=== PATIENT | male | born 1935 | race Hispanic/Latino ===

== ENCOUNTER 2020-12-31 13:53 | Inpatient (IN) | payer MEDICARE ==
[~2020-12-31] VITALS: Ht 180.3 cm; Wt 82.0 kg
[2020-12-31] MEDS ORDERED: POTASSIUM CHLORIDE 10% ELIXIR 20 MEQ/15 ML UDCUP PO PRN (14:45)
[2020-12-31] MEDS ORDERED: POTASSIUM CHLORIDE 10MEQ/100ML 100 ML IV PRN (14:45)
[2020-12-31] MEDS ORDERED: ONDANSETRON HCL 4 MG/2 ML VIAL IV PRN (14:45)
[2020-12-31] MEDS ORDERED: LIDOCAINE HCL-MPF 1% 2ML VIAL IV PRN (14:45)
[2020-12-31] MEDS ORDERED: LACTULOSE 20 GM/30 ML UDCUP PO PRN (14:45)
[2020-12-31] MEDS: NITROGLYCERIN 1GM/1 INCH PACKET TD SCH ×2 (14:45→20:00)
[2020-12-31] MEDS ORDERED: MAGNESIUM 2GM PREMIX 50ML 50 ML IV PRN (14:45)
[2020-12-31] MEDS ORDERED: ACETAMINOPHEN 325 MG TAB PO PRN (14:45)
[2020-12-31] MEDS ORDERED: ENOXAPARIN SODIUM 80 MG/0.8 ML SQ ONE (14:56)
[2020-12-31] MEDS ORDERED: ASPIRIN 81MG TAB.CHEW ONE (14:56)
[2020-12-31] MEDS ORDERED: METOPROLOL TARTRATE 25 MG TAB ONE (14:56)
[2020-12-31] MEDS ORDERED: NITROGLYCERIN 1GM/1 INCH PACKET TD ONE (14:56)
[2020-12-31] MEDS ORDERED: [UNRECOGNIZED DRUG - REMARK] MISC SCH (15:00)
[2020-12-31 16:11] LABS: BASOPHILS % (AUTO) 0.5 % (0.0-5.0); EOSINOPHILS % (AUTO) 0.5 % (0.0-8.0); HEMATOCRIT 43.2 % (42-54); MEAN CORPUSCULAR HEMOGLOBIN 33.1 pg (27.0-33.0); MEAN CORPUSCULAR HGB CONC 34.5 g/dL (32.0-36.0); MONOCYTES % (AUTO) 7.1 % (3.0-13.0); NEUTROPHILS % (AUTO) 71.6 % (40.0-77.0); PLATELET COUNT (AUTO) 150 K/uL (130-400); RED CELL DISTRIBUTION WIDTH 12.6 % (11.0-15.5); WHITE BLOOD COUNT (AUTO) 5.8 K/uL (4.8-10.8)
[2020-12-31] MEDS ORDERED: SODIUM CHLORIDE 0.9% 10 ML VIAL IVP SCH (16:15)
[2020-12-31] MEDS ORDERED: GLUCAGON 1MG KIT 1 MG ML IM PRN (16:15)
[2020-12-31] MEDS ORDERED: DIPHENHYDRAMINE HCL 25 MG CAPSULE PO PRN (16:15)
[2020-12-31] MEDS ORDERED: DEXTROSE 50%-WATER 50 ML DISP.SYRIN IV PRN (16:15)
[2020-12-31 16:22] LABS: POTASSIUM 4.1 mmol/L (3.5-5.1)
[2020-12-31 16:30] LABS: BILIRUBIN,TOTAL 0.8 mg/dL (0.2-1.0); TOTAL PROTEIN, SERUM 7.2 g/dL (6.0-8.3)
[2020-12-31] MEDS: INSULIN R PO SSI SQ SCH ×2 (16:30→20:33)
[2020-12-31 16:31] LABS: CREATINE KINASE, TOTAL 101 U/L (21-232); HEMOGLOBIN A1C 5.8 % (4.0-6.0); MYOGLOBIN 92 ng/mL (10-92); TROPONIN I < 0.04 ng/mL (0.00-0.06)
[2020-12-31 17:00] VITALS: BP 134/87
[2020-12-31] MEDS ORDERED: ALEN70TA80 PO (18:06)
[2020-12-31] MEDS ORDERED: APIX5TAB PO (18:06)
[2020-12-31] MEDS ORDERED: GABA-533 PO (18:06)
[2020-12-31] MEDS ORDERED: LORA10TA7 PO (18:06)
[2020-12-31] MEDS ORDERED: CARV3.1262 PO (18:06)
[2020-12-31] MEDS ORDERED: OMEP40CA21 PO (18:06)
[2020-12-31] MEDS ORDERED: SIMV40TA59 PO (18:06)
[2020-12-31] MEDS ORDERED: DOCU250C14 PO (18:06)
[2020-12-31] MEDS ORDERED: TAMS-1 PO (18:06)
[2020-12-31 18:31] LABS: INR 1.12 (0.85-1.15); PROTHROMBIN TIME 12.1 SEC (9.6-11.6)
[2020-12-31 18:32] LABS: PARTIAL THROMBOPLASTIN TIME 31.3 SEC (26.3-35.5)
[2020-12-31 18:56] LABS: CREATINE KINASE, TOTAL 105 U/L (21-232); MYOGLOBIN 102 ng/mL (10-92); TROPONIN I < 0.04 ng/mL (0.00-0.06)
[2020-12-31] MEDS: SIMVASTATIN 20 MG TABLET PO SCH (19:59)
[2020-12-31] MEDS: METOPROLOL TARTRATE 25 MG TAB PO SCH (19:59)
[2020-12-31] MEDS: ACETAMINOPHEN 325 MG TAB PO PRN (20:10)
[2020-12-31 20:42] VITALS: BP 115/58
[2020-12-31 23:53] VITALS: BP 103/46
[2021-01-01 02:24] LABS: BASOPHILS % (AUTO) 0.8 % (0.0-5.0); EOSINOPHILS % (AUTO) 2.8 % (0.0-8.0); HEMATOCRIT 37.2 % (42-54); LYMPHOCYTES % (AUTO) 39.7 % (21.0-51.0); MEAN CORPUSCULAR HEMOGLOBIN 32.8 pg (27.0-33.0); MEAN CORPUSCULAR HGB CONC 34.4 g/dL (32.0-36.0); MEAN CORPUSCULAR VOLUME 95.4 fL (79-99); NEUTROPHILS % (AUTO) 43.3 % (40.0-77.0); PLATELET COUNT (AUTO) 141 K/uL (130-400); RED CELL DISTRIBUTION WIDTH 12.5 % (11.0-15.5); WHITE BLOOD COUNT (AUTO) 4.9 K/uL (4.8-10.8)
[2021-01-01] MEDS: NITROGLYCERIN 1GM/1 INCH PACKET TD SCH ×2 (02:45→08:35)
[2021-01-01 02:52] LABS: CARBON DIOXIDE 29 mmol/L (21-32); CHLORIDE 106 mmol/L (101-111); CREATININE 1.1 mg/dL (0.5-1.5); GLOMERULAR FILTR. RATE CALC 68 mL/min (>60); GLUCOSE,RANDOM 81 mg/dL (70-105); POTASSIUM 3.8 mmol/L (3.5-5.1); SODIUM SERUM 142 mmol/L (136-145); UREA NITROGEN, BLOOD 18 mg/dL (7-18)
[2021-01-01 02:54] LABS: CREATINE KINASE, TOTAL 111 U/L (21-232)
[2021-01-01] MEDS ORDERED: POTASSIUM CHLORIDE 10% ELIXIR 20 MEQ/15 ML UDCUP PO PRN (03:15)
[2021-01-01] MEDS ORDERED: LIDOCAINE HCL-MPF 1% 2ML VIAL IV PRN (03:15)
[2021-01-01] MEDS ORDERED: KCL 20 MEQ ERTAB PO SCH (03:15)
[2021-01-01] MEDS ORDERED: KCL 20 MEQ ERTAB PO PRN (03:15)
[2021-01-01] MEDS ORDERED: MAGNESIUM 2GM PREMIX 50ML 50 ML IV PRN (03:15)
[2021-01-01] MEDS ORDERED: POTASSIUM CHLORIDE 20MEQ/100ML 100 ML IV PRN (03:15)
[2021-01-01 03:19] LABS: MYOGLOBIN 101 ng/mL (10-92); TROPONIN I < 0.04 ng/mL (0.00-0.06)
[2021-01-01] MEDS: MAGNESIUM 2GM PREMIX 50ML 50 ML IV SCH (04:14)
[2021-01-01 04:22] VITALS: BP 99/53
[2021-01-01] MEDS: INSULIN R PO SSI SQ SCH ×4 (07:30→20:53)
[2021-01-01 08:00] VITALS: BP 128/62
[2021-01-01] MEDS: METOPROLOL TARTRATE 25 MG TAB PO SCH ×2 (08:35→21:31)
[2021-01-01] MEDS: ASPIRIN 81MG TAB.CHEW PO SCH (08:37)
[2021-01-01] MEDS: PANTOPRAZOLE SODIUM 40 MG TABLET.DR PO SCH (08:37)
[2021-01-01] MEDS: ENOXAPARIN SODIUM 80 MG/0.8 ML SQ SCH (08:38)
[2021-01-01] MEDS ORDERED: APIX5TAB PO (08:42)
[2021-01-01] MEDS ORDERED: FOLI0.8T3 PO (08:44)
[2021-01-01] MEDS ORDERED: TAMSULOSIN HCL 0.4 MG CAP.ER.24H PO SCH (09:00)
[2021-01-01 12:00] VITALS: BP 114/68
[2021-01-01] MEDS ORDERED: MAGNESIUM 2GM PREMIX 50ML 50 ML IV SCH (12:00)
[2021-01-01 16:00] VITALS: BP 131/71
[2021-01-01 19:53] VITALS: BP 121/59
[2021-01-01] MEDS: TAMSULOSIN HCL 0.4 MG CAP.ER.24H PO SCH (21:31)
[2021-01-01] MEDS: SIMVASTATIN 20 MG TABLET PO SCH (21:32)
[2021-01-01] MEDS: TRAZODONE HCL 50 MG TAB PO PRN (21:32)
[2021-01-02 04:00] VITALS: BP 125/68
[2021-01-02 04:58] LABS: HEMATOCRIT 40.6 % (42-54); MEAN CORPUSCULAR HEMOGLOBIN 32.6 pg (27.0-33.0); MEAN CORPUSCULAR HGB CONC 34.5 g/dL (32.0-36.0); MEAN CORPUSCULAR VOLUME 94.6 fL (79-99); RED BLOOD CELL COUNT(AUTO) 4.29 MIL/uL (4.50-6.20); RED CELL DISTRIBUTION WIDTH 12.6 % (11.0-15.5); WHITE BLOOD COUNT (AUTO) 5.3 K/uL (4.8-10.8)
[2021-01-02 05:07] LABS: POTASSIUM 4.3 mmol/L (3.5-5.1)
[2021-01-02] MEDS: INSULIN R PO SSI SQ SCH ×3 (06:35→20:42)
[2021-01-02 07:00] VITALS: BP 104/63
[2021-01-02] MEDS ORDERED: REGADENOSON 0.4 MG/5 ML PF SYG IVP SCH (07:00)
[2021-01-02] MEDS: METOPROLOL TARTRATE 25 MG TAB PO SCH (09:00)
[2021-01-02] MEDS: ACETAMINOPHEN 325 MG TAB PO PRN (10:40)
[2021-01-02] MEDS: ENOXAPARIN SODIUM 80 MG/0.8 ML SQ SCH (10:42)
[2021-01-02] MEDS: PANTOPRAZOLE SODIUM 40 MG TABLET.DR PO SCH (10:43)
[2021-01-02] MEDS: ASPIRIN 81MG TAB.CHEW PO SCH (10:44)
[2021-01-02 11:00] VITALS: BP 140/52
[2021-01-02 16:00] VITALS: BP 137/72
[2021-01-02] MEDS: LISINOPRIL 5 MG TABLET PO SCH (19:42)
[2021-01-02] MEDS: SIMVASTATIN 20 MG TABLET PO SCH (19:43)
[2021-01-02] MEDS: TAMSULOSIN HCL 0.4 MG CAP.ER.24H PO SCH (19:43)
[2021-01-02] MEDS: TRAZODONE HCL 50 MG TAB PO PRN (19:47)
[2021-01-02 20:00] VITALS: BP 120/72
[2021-01-02] MEDS ORDERED: METOPROLOL TARTRATE 25 MG TAB PO SCH (21:00)
[2021-01-03] VITALS (16 sets, daily range): BP systolic 74–152; BP diastolic 41–72
[2021-01-03] MEDS: INSULIN R PO SSI SQ SCH ×4 (05:46→20:01)
[2021-01-03] MEDS ORDERED: PROPOFOL 10 MG/ML 20ML VIAL IV ONE (08:22)
[2021-01-03] MEDS ORDERED: ATROPINE SULFATE 0.1 MG/ML 10 ML SYG IVP ONE (08:29)
[2021-01-03] MEDS ORDERED: EPHEDRINE SULFATE 50 MG/ML AMPULE ONE (08:31)
[2021-01-03] MEDS: PANTOPRAZOLE SODIUM 40 MG TABLET.DR PO SCH (09:58)
[2021-01-03] MEDS: FUROSEMIDE 20 MG TABLET PO SCH (09:58)
[2021-01-03] MEDS: ASPIRIN 81MG TAB.CHEW PO SCH (09:58)
[2021-01-03] MEDS: CARVEDILOL 3.125 MG TABLET PO SCH ×2 (09:59→19:58)
[2021-01-03] MEDS: LISINOPRIL 5 MG TABLET PO SCH ×2 (09:59→19:58)
[2021-01-03] MEDS: TRAZODONE HCL 50 MG TAB PO PRN (19:58)
[2021-01-03] MEDS: TAMSULOSIN HCL 0.4 MG CAP.ER.24H PO SCH (19:58)
[2021-01-03] MEDS: SIMVASTATIN 20 MG TABLET PO SCH (19:58)
[2021-01-04] VITALS (7 sets, daily range): BP systolic 95–145; BP diastolic 44–67
[2021-01-04 04:19] LABS: BASOPHILS % (AUTO) 0.5 % (0.0-5.0); HEMATOCRIT 36.9 % (42-54); MEAN CORPUSCULAR HEMOGLOBIN 33.3 pg (27.0-33.0); MEAN CORPUSCULAR VOLUME 95.3 fL (79-99); MONOCYTES % (AUTO) 11.3 % (3.0-13.0); PLATELET COUNT (AUTO) 130 K/uL (130-400); RED BLOOD CELL COUNT(AUTO) 3.87 MIL/uL (4.50-6.20); RED CELL DISTRIBUTION WIDTH 12.5 % (11.0-15.5); WHITE BLOOD COUNT (AUTO) 5.6 K/uL (4.8-10.8)
[2021-01-04 04:49] LABS: ALBUMIN 3.2 g/dL (3.5-5.0); BILIRUBIN,TOTAL 0.8 mg/dL (0.2-1.0); POTASSIUM 3.7 mmol/L (3.5-5.1); TOTAL PROTEIN, SERUM 5.9 g/dL (6.0-8.3)
[2021-01-04] MEDS: INSULIN R PO SSI SQ SCH ×4 (06:15→20:45)
[2021-01-04] MEDS: PANTOPRAZOLE SODIUM 40 MG TABLET.DR PO SCH (11:01)
[2021-01-04] MEDS: METOPROLOL SUCCINATE 50 MG TAB.SR.24H PO SCH (11:01)
[2021-01-04] MEDS: FUROSEMIDE 20 MG TABLET PO SCH (11:01)
[2021-01-04] MEDS: ASPIRIN 81MG TAB.CHEW PO SCH (11:01)
[2021-01-04] MEDS: LISINOPRIL 5 MG TABLET PO SCH ×2 (11:02→20:48)
[2021-01-04] MEDS: TAMSULOSIN HCL 0.4 MG CAP.ER.24H PO SCH (20:48)
[2021-01-04] MEDS: SIMVASTATIN 20 MG TABLET PO SCH (20:48)
[2021-01-05 04:00] VITALS: BP 103/49
[2021-01-05 04:32] LABS: BASOPHILS % (AUTO) 0.2 % (0.0-5.0); EOSINOPHILS % (AUTO) 0.2 % (0.0-8.0); HEMATOCRIT 36.7 % (42-54); LYMPHOCYTES % (AUTO) 10.8 % (21.0-51.0); MEAN CORPUSCULAR HEMOGLOBIN 32.9 pg (27.0-33.0); MEAN CORPUSCULAR HGB CONC 34.6 g/dL (32.0-36.0); MEAN CORPUSCULAR VOLUME 95.1 fL (79-99); MONOCYTES % (AUTO) 8.3 % (3.0-13.0); NEUTROPHILS % (AUTO) 79.8 % (40.0-77.0); PLATELET COUNT (AUTO) 138 K/uL (130-400); RED BLOOD CELL COUNT(AUTO) 3.86 MIL/uL (4.50-6.20); RED CELL DISTRIBUTION WIDTH 12.6 % (11.0-15.5); WHITE BLOOD COUNT (AUTO) 16.5 K/uL (4.8-10.8)
[2021-01-05 05:02] LABS: ALBUMIN 3.2 g/dL (3.5-5.0); BILIRUBIN,TOTAL 1.2 mg/dL (0.2-1.0); CREATININE 1.2 mg/dL (0.5-1.5); POTASSIUM 3.5 mmol/L (3.5-5.1)
[2021-01-05] MEDS: INSULIN R PO SSI SQ SCH ×4 (07:30→21:00)
[2021-01-05 08:00] VITALS: BP 106/65
[2021-01-05] MEDS: PANTOPRAZOLE SODIUM 40 MG TABLET.DR PO SCH (09:35)
[2021-01-05] MEDS: METOPROLOL SUCCINATE 50 MG TAB.SR.24H PO SCH (09:36)
[2021-01-05] MEDS: ASPIRIN 81MG TAB.CHEW PO SCH (09:37)
[2021-01-05] MEDS: FUROSEMIDE 20 MG TABLET PO SCH (09:38)
[2021-01-05] MEDS: LISINOPRIL 5 MG TABLET PO SCH ×2 (09:39→21:34)
[2021-01-05] MEDS ORDERED: ASPI-1005 PO (11:54)
[2021-01-05] MEDS ORDERED: LISI-809 PO (11:54)
[2021-01-05] MEDS ORDERED: METO50TA9 PO (11:54)
[2021-01-05 12:00] VITALS: BP 102/48
[2021-01-05] MEDS ORDERED: AMOX-427 PO (12:03)
[2021-01-05 16:00] VITALS: BP 101/45
[2021-01-05] MEDS ORDERED: APIX5TAB PO (17:10)
[2021-01-05] MEDS ORDERED: FOLI0.8C PO (17:10)
[2021-01-05] MEDS ORDERED: GABA600T10 PO (17:10)
[2021-01-05] MEDS ORDERED: OMEP40CA21 PO (17:10)
[2021-01-05] MEDS ORDERED: TAMS-1 PO (17:10)
[2021-01-05] MEDS ORDERED: SIMV-43 PO (17:10)
[2021-01-05 19:00] VITALS: BP 118/58
[2021-01-05] MEDS: TAMSULOSIN HCL 0.4 MG CAP.ER.24H PO SCH (21:33)
[2021-01-05] MEDS: SIMVASTATIN 20 MG TABLET PO SCH (21:33)
[2021-01-05] MEDS: TRAZODONE HCL 50 MG TAB PO PRN (21:40)
[2021-01-06] VITALS: BP 111/44
[2021-01-06 04:00] VITALS: BP 132/62
[2021-01-06 04:06] LABS: BASOPHILS % (AUTO) 0.3 % (0.0-5.0); EOSINOPHILS % (AUTO) 0.7 % (0.0-8.0); HEMATOCRIT 36.6 % (42-54); LYMPHOCYTES % (AUTO) 13.6 % (21.0-51.0); MEAN CORPUSCULAR HEMOGLOBIN 33.7 pg (27.0-33.0); MEAN CORPUSCULAR VOLUME 96.3 fL (79-99); MONOCYTES % (AUTO) 9.4 % (3.0-13.0); NEUTROPHILS % (AUTO) 75.5 % (40.0-77.0); PLATELET COUNT (AUTO) 118 K/uL (130-400); RED CELL DISTRIBUTION WIDTH 12.4 % (11.0-15.5); WHITE BLOOD COUNT (AUTO) 10.9 K/uL (4.8-10.8)
[2021-01-06 04:23] LABS: INR 1.1 (0.85-1.15); PROTHROMBIN TIME 11.9 SEC (9.6-11.6)
[2021-01-06 04:29] LABS: ALBUMIN 3.1 g/dL (3.5-5.0); BILIRUBIN,TOTAL 0.8 mg/dL (0.2-1.0); CREATININE 1.2 mg/dL (0.5-1.5); POTASSIUM 3.4 mmol/L (3.5-5.1)
[2021-01-06] MEDS: INSULIN R PO SSI SQ SCH ×4 (06:30→20:59)
[2021-01-06 07:47] VITALS: BP 126/95
[2021-01-06] MEDS: FUROSEMIDE 20 MG TABLET PO SCH (08:53)
[2021-01-06] MEDS: ASPIRIN 81MG TAB.CHEW PO SCH ×2 (08:53→09:00)
[2021-01-06] MEDS: PANTOPRAZOLE SODIUM 40 MG TABLET.DR PO SCH (08:53)
[2021-01-06] MEDS: METOPROLOL SUCCINATE 50 MG TAB.SR.24H PO SCH ×2 (08:54→10:57)
[2021-01-06] MEDS: LISINOPRIL 5 MG TABLET PO SCH ×2 (08:54→21:13)
[2021-01-06] MEDS: MAGNESIUM 2GM PREMIX 50ML 50 ML IV SCH (10:49)
[2021-01-06] MEDS: KCL 20 MEQ ERTAB PO PRN ×2 (10:54→21:13)
[2021-01-06 11:48] VITALS: BP 114/55
[2021-01-06 16:00] VITALS: BP 112/38
[2021-01-06 20:00] VITALS: BP 103/53
[2021-01-06] MEDS: SIMVASTATIN 20 MG TABLET PO SCH (21:13)
[2021-01-06] MEDS: TAMSULOSIN HCL 0.4 MG CAP.ER.24H PO SCH (21:13)
[2021-01-06] MEDS: TRAZODONE HCL 50 MG TAB PO PRN (21:15)
[2021-01-07] VITALS (13 sets, daily range): BP systolic 103–120; BP diastolic 46–66
[2021-01-07] MEDS: INSULIN R PO SSI SQ SCH ×3 (05:30→16:29)
[2021-01-07 06:59] LABS: MEAN CORPUSCULAR HEMOGLOBIN 33.6 pg (27.0-33.0); MEAN CORPUSCULAR HGB CONC 34.6 g/dL (32.0-36.0); PLATELET COUNT (AUTO) 145 K/uL (130-400); RED BLOOD CELL COUNT(AUTO) 4.02 MIL/uL (4.50-6.20); RED CELL DISTRIBUTION WIDTH 12.5 % (11.0-15.5); WHITE BLOOD COUNT (AUTO) 8.1 K/uL (4.8-10.8)
[2021-01-07 07:13] LABS: CREATININE 1.2 mg/dL (0.5-1.5); MAGNESIUM 2.1 mg/dL (1.80-2.40)
[2021-01-07 07:32] LABS: ALBUMIN 3.3 g/dL (3.5-5.0); POTASSIUM 3.9 mmol/L (3.5-5.1); TOTAL PROTEIN, SERUM 6.6 g/dL (6.0-8.3)
[2021-01-07 07:45] LABS: EOSINOPHILS % (MANUAL) 1 % (1-6); LYMPHOCYTES % (MANUAL) 19 % (22-44); MAN.DIFF COMMENT-IMPRESSION MANUAL DIFFERENTIAL; MONOCYTES % (MANUAL) 4 % (2-9); SEGMENTED NEUTROPHILS % 76 % (40-70)
[2021-01-07 07:46] LABS: PLATELET MORPHOLOGY COMMENT ADEQUATE
[2021-01-07] MEDS ORDERED: NITROGLYCERIN 2 MG/VIAL VIAL IV ONE (07:49)
[2021-01-07] MEDS ORDERED: LIDOCAINE HCL 400MG/20ML VIAL ONE (07:49)
[2021-01-07] MEDS ORDERED: IOHEXOL 350 MG/ML 100ML INFUS..BTL IV ONE (07:49)
[2021-01-07] MEDS ORDERED: IOHEXOL-350 50ML VIAL IV ONE (07:49)
[2021-01-07] MEDS ORDERED: HEPARIN SODIUM 1000UNIT/ML 10ML VIAL ONE (07:49)
[2021-01-07] MEDS ORDERED: MIDAZOLAM HCL 1 MG/ML 2ML VIAL ONE (07:56)
[2021-01-07] MEDS ORDERED: FENTANYL CITRATE PF 50 MCG/1 ML 2ML VIAL ONE (07:57)
[2021-01-07] MEDS: ASPIRIN 81MG TAB.CHEW PO SCH (08:02)
[2021-01-07] MEDS: METOPROLOL SUCCINATE 50 MG TAB.SR.24H PO SCH (08:03)
[2021-01-07] MEDS: FUROSEMIDE 20 MG TABLET PO SCH (08:03)
[2021-01-07] MEDS: PANTOPRAZOLE SODIUM 40 MG TABLET.DR PO SCH (08:03)
[2021-01-07] MEDS: LISINOPRIL 5 MG TABLET PO SCH (08:03)
[2021-01-07] MEDS ORDERED: ATROPINE SULFATE 0.1 MG/ML 10 ML SYG IVP ONE (08:11)
[2021-01-07] MEDS ORDERED: DEXTROSE 50%-WATER 50 ML DISP.SYRIN IV PRN (08:45)
[2021-01-07] MEDS ORDERED: MAGNESIUM OXIDE 400 MG TABLET PO SCH ×2 (08:45→13:45)
[2021-01-07] MEDS ORDERED: MAGN400T7 PO (14:00)
[2021-01-07] MEDS ORDERED: FURO20TA6 PO (14:00)
[2021-01-07] MEDS ORDERED: METO50TA9 PO (14:00)
== END 2021-01-07 17:32 | disposition home or self-care (01) | DRG 206 ==
LOC: EDH 13:53 → OBSVTOIN 13:54 → EDHIP 13:54 → INTOOBSV 13:54 → 4BH 16:47 → 4DH 01-06 04:48
PROVIDERS: ADMIT Internal Medicine; ATTEND Internal Medicine
PROC: 0DB68ZX Excision of Stomach, Via Natural or Artificial Opening Endoscopic, Diagnostic (ICD-10-PCS; 2021-01-03)
PROC: 0D758ZZ Dilation of Esophagus, Via Natural or Artificial Opening Endoscopic (ICD-10-PCS; 2021-01-03)
PROC: 4A023N7 Measurement of Cardiac Sampling and Pressure, Left Heart, Percutaneous Approach (ICD-10-PCS; principal; 2021-01-07)
PROC: B2111ZZ Fluoroscopy of Multiple Coronary Arteries using Low Osmolar Contrast (ICD-10-PCS; 2021-01-07)
DX: M94.0 Chondrocostal junction syndrome [Tietze] (principal); I42.0 Dilated cardiomyopathy; I50.42 Chronic combined systolic (congestive) and diastolic (congestive) heart failure; I44.7 Left bundle-branch block, unspecified; I25.5 Ischemic cardiomyopathy; R13.10 Dysphagia, unspecified; K22.2 Esophageal obstruction; K29.70 Gastritis, unspecified, without bleeding; I49.3 Ventricular premature depolarization; D69.6 Thrombocytopenia, unspecified; K21.9 Gastro-esophageal reflux disease without esophagitis; R63.4 Abnormal weight loss; Z88.8 Allergy status to other drugs, medicaments and biological substances; Z91.040 Latex allergy status; Z79.01 Long term (current) use of anticoagulants; Z85.71 Personal history of Hodgkin lymphoma; Z86.711 Personal history of pulmonary embolism; Z86.718 Personal history of other venous thrombosis and embolism; Z92.21 Personal history of antineoplastic chemotherapy; Z92.3 Personal history of irradiation; Z98.1 Arthrodesis status; Z90.49 Acquired absence of other specified parts of digestive tract; Z68.25 Body mass index [BMI] 25.0-25.9, adult
CPT/HCPCS: 36415; 43239; 43248; 71045; 71046; 74230; 74240; 78452; 80048; 80053; 80061; 82550; 82948; 83036; 83735; 83874; 83880; 84443; 84484; 85025; 85027; 85610; 85730; 92610; 92611; 93005; 93017; 93306; 93356; 93454; 96374; 99156; 99157; A4606; A9500; C1894; G0378; J0461; J1644; J1650; J2250; J2704; J2785; J3010; J3475; J3490; J7030; Q0163; Q9967

== ENCOUNTER → 2022-03-29 | Outpatient (CLI) | payer MEDICARE ==
[~2022-03-29] MED LIST: AMOX-427 PO; APIX5TAB PO; ASPI-1005 PO; DOCU250C14 PO; FOLI0.8T3 PO; FURO20TA6 PO; GABA-533 PO; LISI5TAB21 PO; LORA10TA7 PO; MAGN400T7 PO; METO50TA9 PO; OMEP40CA21 PO; SIMV40TA59 PO; TAMS-1 PO
== END | disposition home or self-care (01) ==
LOC: SHCH 14:17
PROVIDERS: ATTEND Internal Medicine Cardiovascular Disease
DX: I34.0 Nonrheumatic mitral (valve) insufficiency (principal); I51.7 Cardiomegaly; I48.20 Chronic atrial fibrillation, unspecified; I49.3 Ventricular premature depolarization; C81.90 Hodgkin lymphoma, unspecified, unspecified site
CPT/HCPCS: 93306

== ENCOUNTER 2022-05-11 07:22 | Day surgery (SDC) | payer MEDICARE ==
[2022-05-09 11:20] LABS: BASOPHILS % (AUTO) 0.6 % (0.0-5.0); EOSINOPHILS % (AUTO) 3.7 % (0.0-8.0); HEMATOCRIT 37.5 % (42-54); LYMPHOCYTES % (AUTO) 17.8 % (21.0-51.0); MEAN CORPUSCULAR HEMOGLOBIN 33.6 pg (27.0-33.0); MEAN CORPUSCULAR HGB CONC 33.9 g/dL (32.0-36.0); MEAN CORPUSCULAR VOLUME 99.2 fL (79-99); NEUTROPHILS % (AUTO) 62.7 % (40.0-77.0); PLATELET COUNT (AUTO) 141 K/uL (130-400); RED BLOOD CELL COUNT(AUTO) 3.78 MIL/uL (4.50-6.20); RED CELL DISTRIBUTION WIDTH 13.3 % (11.0-15.5); WHITE BLOOD COUNT (AUTO) 4.9 K/uL (4.8-10.8)
[2022-05-09 11:34] LABS: CREATININE 1.2 mg/dL (0.5-1.5); POTASSIUM 4.5 mmol/L (3.5-5.1)
[2022-05-09 12:03] LABS: INR 1.05 (0.85-1.15); PROTHROMBIN TIME 11.4 SEC (9.6-11.6)
[2022-05-09 12:05] LABS: PARTIAL THROMBOPLASTIN TIME 27.3 SEC (26.3-35.5)
[2022-05-09] MEDS: CEFAZOLIN SODIUM 1 GM VIAL IVP SCH (14:10)
[2022-05-10 11:56] VITALS: BP 141/68
[2022-05-11] VITALS (9 sets, daily range): BP systolic 104–139; BP diastolic 51–81
[~2022-05-11] VITALS: Ht 180.3 cm; Wt 91.6 kg
[~2022-05-11 07:22] MED LIST changes: +ACET-3540 PO; -AMOX-427 PO; -ASPI-1005 PO; +DOCU100C33 PO; -DOCU250C14 PO; -FOLI0.8T3 PO; +FOLIC ACID PO; +FURO20TA4 PO; -FURO20TA6 PO; -LISI5TAB21 PO; -LORA10TA7 PO; +LOSA25TA41 PO; +MAGN400T53 PO; -MAGN400T7 PO; +MELA10CA2 PO; +METO-408 PO; -METO50TA9 PO; +MULT200T12 PO; +OMEP-420 PO; -OMEP40CA21 PO; +PROP10DR5 OP; +VITAMIN B12 SL
[2022-05-11] MEDS ORDERED: 0.9%NACL 1000ML 1,000 ML IV ONE (10:42)
[2022-05-11] MEDS: CEFAZOLIN SODIUM 1 GM VIAL IVP SCH (14:08)
[2022-05-11] MEDS ORDERED: BUPIVACAINE/PF 0.25% 30ML VIAL IJ ONE (14:33)
[2022-05-11] MEDS ORDERED: MIDAZOLAM HCL 1 MG/ML 2ML VIAL ONE ×3 (14:34→14:54)
[2022-05-11] MEDS ORDERED: LIDOCAINE PF 100MG/5ML (2%) SYRINGE 5ML ONE ×2 (14:34→14:44)
[2022-05-11] MEDS ORDERED: MEPERIDINE-PF 25 MG/ML SYG ONE ×3 (14:34→14:54)
[2022-05-11] MEDS ORDERED: IOHEXOL-350 50ML VIAL IV ONE (14:35)
[2022-05-11] MEDS ORDERED: ACETAMINOPHEN WITH CODEINE 1 TAB TAB PO PRN (16:30)
[2022-05-11] MEDS ORDERED: TRAM50TA4 PO (16:36)
== END 2022-05-11 19:30 | disposition home or self-care (01) ==
LOC: DAH 07:22
PROVIDERS: ATTEND Internal Medicine Cardiovascular Disease
DX: I42.0 Dilated cardiomyopathy (principal); I48.19 Other persistent atrial fibrillation; I50.22 Chronic systolic (congestive) heart failure; I49.3 Ventricular premature depolarization; Z79.01 Long term (current) use of anticoagulants; Z79.899 Other long term (current) drug therapy; Z98.890 Other specified postprocedural states; Z88.8 Allergy status to other drugs, medicaments and biological substances; Z91.040 Latex allergy status
CPT/HCPCS: 80048; 85025; 85610; 85730; 36415; 93005; 33208; 71045; C1785; C1898 ×2; J0690 ×2; J7030; J3490; J2001 ×2; J2250 ×3; J2175 ×3; Q9967; A4215; A4222; A4221; A4663; A4216; A4606; A4223 ×3; 99156; 99157

== ENCOUNTER 2022-06-05 07:55 | Day surgery (SDC) | payer MEDICARE ==
[2022-05-31 10:55] LABS: BASOPHILS % (AUTO) 0.8 % (0.0-5.0); EOSINOPHILS % (AUTO) 4.6 % (0.0-8.0); HEMATOCRIT 41.3 % (42-54); LYMPHOCYTES % (AUTO) 19.5 % (21.0-51.0); MEAN CORPUSCULAR HEMOGLOBIN 33.4 pg (27.0-33.0); MEAN CORPUSCULAR HGB CONC 33.9 g/dL (32.0-36.0); MEAN CORPUSCULAR VOLUME 98.6 fL (79-99); MONOCYTES % (AUTO) 12.1 % (3.0-13.0); NEUTROPHILS % (AUTO) 62.8 % (40.0-77.0); PLATELET COUNT (AUTO) 154 K/uL (130-400); RED BLOOD CELL COUNT(AUTO) 4.19 MIL/uL (4.50-6.20); RED CELL DISTRIBUTION WIDTH 12.8 % (11.0-15.5)
[2022-05-31 11:01] LABS: CREATININE 1.2 mg/dL (0.5-1.5); POTASSIUM 4.5 mmol/L (3.5-5.1)
[2022-06-01 14:27] VITALS: BP 141/80
[2022-06-05] VITALS (13 sets, daily range): BP systolic 104–130; BP diastolic 61–81
[~2022-06-05] VITALS: Ht 180.3 cm; Wt 89.9 kg
[~2022-06-05 07:55] MED LIST changes: +DRON400T7 PO; +ESOM20CA39 PO; -MELA10CA2 PO; +MELA10TA2 PO; +MULT-1333 PO; -MULT200T12 PO; -OMEP-420 PO
[2022-06-05] MEDS ORDERED: LIDOCAINE PF 100MG/5ML (2%) SYRINGE 5ML ONE (09:14)
[2022-06-05] MEDS ORDERED: PROPOFOL 10 MG/ML 20ML VIAL IV ONE (09:15)
== END 2022-06-05 10:45 | disposition home or self-care (01) ==
LOC: DAH 07:55 → CLH 07:55
PROVIDERS: ATTEND Internal Medicine Cardiovascular Disease
DX: I48.19 Other persistent atrial fibrillation (principal); Z20.822 Contact with and (suspected) exposure to COVID-19; I44.7 Left bundle-branch block, unspecified; I42.8 Other cardiomyopathies; E78.5 Hyperlipidemia, unspecified; Z86.718 Personal history of other venous thrombosis and embolism; Z79.01 Long term (current) use of anticoagulants; Z85.72 Personal history of non-Hodgkin lymphomas; Z92.21 Personal history of antineoplastic chemotherapy; Z98.890 Other specified postprocedural states; Z91.040 Latex allergy status
CPT/HCPCS: 80048; 85025; 87426; 36415; 92960; 93005 ×2; A4223 ×3; J2001; J2704; A4215; A7002; A4222; A4221; A4663; A4216; A4606